=== PATIENT | female | born 1995 | race Caucasian/White ===

== ENCOUNTER 2016-11-05 19:44 | Emergency (ER) | payer OTHER ==
[~2016-11-05 19:44] MED LIST: CIPRO250 MG PO; FOLIC ACID 1 MG1 MG PO; HUMALOG100 UNIT/1 SC; HUMULIN R100 UNIT/1 SC; LANTUS100 UNIT/1 INJ; LANTUS100 UNIT/1 SC; LANTUS100 UNIT/1 SQ; LOPERAMIDE2 MG PO; NEURONTIN 100100 MG PO; PEPCID20 MG PO; PROMETHAZINE12.5 M1 PO; VIBERZI PO
[2016-11-05 20:48] LABS: RED BLOOD COUNT 3.59 M/UL (4.00-5.10); WHITE BLOOD COUNT 5.9 K/UL (4.5-11.0)
[2016-11-05 21:10] LABS: BUN/CREATININE RATIO 15 (0-10)
== END 2016-11-06 02:15 | disposition home or self-care (01) ==
LOC: ER1 19:44
PROVIDERS: Family Medicine
DX: N12 Tubulo-interstitial nephritis, not specified as acute or chronic (principal); E10.9 Type 1 diabetes mellitus without complications; Z79.4 Long term (current) use of insulin; Z88.0 Allergy status to penicillin; Z90.49 Acquired absence of other specified parts of digestive tract; Z88.8 Allergy status to other drugs, medicaments and biological substances; Z79.899 Other long term (current) drug therapy
CPT/HCPCS: 36415; 80053; 81001; 82009; 82800; 82962; 83605; 84703; 85025; 87040; 87086; 93005; 96361; 96365; 96375; 99284; J0696; J1200; J2405; J7030; J7050; Q9962